=== PATIENT | male | born 1955 | race African-American/Black ===

== ENCOUNTER → 2016-06-29 | Outpatient (CLI) | payer MEDICAID, MEDICARE | LOC: RAD 06:40 | PROVIDERS: ATTEND Student in an Organized Health Care Education/Training Program | DX: K76.0 Fatty (change of) liver, not elsewhere classified (principal); R94.5 Abnormal results of liver function studies | CPT/HCPCS: 76705 ==

== ENCOUNTER → 2016-12-07 | Outpatient (CLI) | payer MEDICARE ==
--- NOTE | 2016-12-07 14:35 | RADIOLOGY REPORT (SQ) ---
EXAM DESCRIPTION: FOREARM RIGHT COMPLETED DATE/TIME: 12/07/2016 1:02 pm REASON FOR STUDY: RIGHT WRIST PAIN (M25.531) M25.531 PAIN IN RIGHT WRIST COMPARISON: None. NUMBER OF VIEWS: Two views. TECHNIQUE: Two radiographic images acquired of the right forearm, including elbow and wrist in at le ast one projection. LIMITATIONS: None. FINDINGS: MINERALIZATION: Normal. BONES: No acute fracture. No worrisome bone lesions. SOFT TISSUES: No obvious swelling or foreign body. OTHER: No other significant finding. IMPRESSION: NEGATIVE STUDY OF THE RIGHT FOREARM. NO RADIOGRAPHIC EVIDENCE OF ACUTE INJURY. TECHNICAL DOCUMENTATION: JOB ID: [id number] [email or web address]- All Rights Reserved
--- NOTE | 2016-12-07 14:36 | RADIOLOGY REPORT (SQ) ---
EXAM DESCRIPTION: HAND RIGHT 3 VIEWS COMPLETED DATE/TIME: 12/07/2016 1:02 pm REASON FOR STUDY: RIGHT WRIST PAIN (M25.531) M25.531 PAIN IN RIGHT WRIST COMPARISON: None. EXAM PARAMETERS: NUMBER OF VIEWS: Three views. TECHNIQUE: AP, lateral and oblique radiographic images acquired of the right hand. LIMITATIONS: None. FINDINGS: MINERALIZATION: Normal. BONES: No acute fracture or dislocation. No worrisome bone lesions. No significant osteophytes. JOINTS: No erosions. No rohit-articular osteopenia. No chondrocalcinosis. SOFT TISSUES: No swelling. No calcifications. OTHER: No other significant finding. IMPRESSION: NEGATIVE STUDY OF THE RIGHT HAND. NO EXPLANATION FOR PAIN. TECHNICAL DOCUMENTATION: JOB ID: [id number] [employer]- All Rights Reserved
== END ==
LOC: RAD 12:48
PROVIDERS: ATTEND Student in an Organized Health Care Education/Training Program
DX: M25.531 Pain in right wrist (principal)

== ENCOUNTER 2017-07-11 16:33 | Emergency (ER) | payer MEDICARE, MEDICAID ==
--- NOTE | 2017-07-11 17:24 | ER Document Report ---
HPI - HPI Pain Level: Denies Notes: Patient is a 61-year-old male with a history of type 2 diabetes, hypertension, COPD who presents to the ED complaining of right facial swelling that began today. Patient states that he has not had associated pain at rest, and it has improved since this morning, but does notice discomfort if he pushes on it. Patient states that he is still eating and drinking without any difficulties. He is urinating normally and having normal bowel movements. Patient states that he has not been sick recently and feels well overall aside from the swelling. Patient is still urinating normally and having normal bowel movements. His last glucose check was an hour prior to arrival which was 80. Patient has been taking his medicines normally without any side effects to note. He has not had any new medications, detergents, foods, drinks, or travel. Denies any headache, fever, head injury, neck pain, drooling, hoarseness, changes in vision/speech/mentation/hearing, URI, sore throat, chest pain, palpitations, syncope, cough, shortness of breath, wheeze, dyspnea, abdominal pain, nausea/vomiting/diarrhea, urinary retention, dysuria, hematuria , or rash. - ROS Systems Reviewed and Negative: Yes All other systems reviewed and negative - REPRODUCTIVE Reproductive: DENIES: : Past Medical History - Social History Smoking Status: Never Smoker Family History: CVA, Hypertension, Other - Past Medical History Cardiac Medical History: Reports: Hx Hypercholesterolemia, Hx Hypertension Pulmonary Medical History: Reports: Hx Asthma, Hx COPD, Hx Pneumonia, Hx Respiratory Failure, Hx Sleep Apnea, Hx Tuberculosis - 1982 Endocrine Medical History: Reports: Hx Diabetes Mellitus Type 2 - no meds. diet controlled Renal/ Medical History: Reports: Hx End Stage Renal Disease GI Medical History: Reports: Hx Hepatitis - HVC Musculoskeltal Medical History: Reports Hx Arthritis - RA Psychiatric Medical History: Reports: Hx Depression Infectious Medical History: Reports: Hx Hepatitis - HVC Past Surgical History: Reports: Hx Abdominal Surgery, Hx Orthopedic Surgery - Right ankle repair with metal plate and scews, Hx Tonsillectomy - Immunizations Hx Diphtheria, Pertussis, Tetanus Vaccination: Yes Hx Pneumococcal Vaccination: 02/24/13 Vertical Provider Document - CONSTITUTIONAL Agree With Documented VS: Yes Notes: PHYSICAL EXAMINATION: GENERAL: Well-appearing, well-nourished and in no acute distress. A&Ox4. Answers questions appropriately. Moves comfortably w/o notable distress HEAD: Atraumatic, normocephalic. EYES: Pupils equal round and reactive to light, extraocular movements intact, sclera anicteric, conjunctiva are normal. ENT: EAC clear b/l. TM's intact b/l without erythema, fluid, or perforation. Nares patent and without discharge. oropharynx no erythema without exudates. No tonsilar hypertrophy without erythema or exudate. No palatine shift. Uvula midline. No tongue protrusion. No drooling, hoarseness, or airway compromise. Moist mucous membranes. No sinus tenderness. Face: + mild swelling to the rt lateral face in the area of the parotid gland. + mild tenderness w/o obvious abscess or induration. No mouth/dental/gum tenderness. NECK: Normal range of motion, supple without lymphadenopathy. No rigidity/ meningismus. LUNGS: Breath sounds clear to auscultation bilaterally and equal. No wheezes rales or rhonchi. No retractions HEART: Regular rate and rhythm without murmurs, rubs, gallops. NEUROLOGICAL: Normal speech, normal gait. Normal sensory, motor exams PSYCH: Normal mood, normal affect. SKIN: Warm, Dry, normal turgor, no rashes or lesions noted. - INFECTION CONTROL TRAVEL OUTSIDE OF THE [place] IN LAST 30 DAYS: No - RESPIRATORY O2 Sat by Pulse Oximetry: 92 Course - Re-evaluation Re-evalutation: 07/11/17 17:22 Patient is an afebrile, well-hydrated, 61-year-old male who presents to the ED with parotiditis of the right side. Patient also has tachycardia not otherwise specified. Patient is nontoxic-appearing and does not appear to be any distress or show any signs of illness otherwise. Patient states that his health feels at baseline for him aside from the swelling to the right side of his face. Dr. Veliz was consulted due to the tachycardia and he also eval'd the patient. At this time, no labs or imaging warranted and we will discharge him home with antibiotics. Patient advised that he needs to eat sour candies as well as Motrin/ibuprofen and other conservative measures for symptoms. Patient is to monitor his heart rate closely. Patient is scheduled to see his primary care doctor in 2 days. Return to the ED with any worsening/concerning symptoms otherwise as reviewed discharge. Low suspicion for any meningitis, sepsis, peritonsillar/pharyngeal abscess, respiratory compromise, Mohsen's, or other emergent systemic condition at this time. Patient is aware this condition can change from initial presentation and he needs to monitor symptoms closely. Patient is in agreement. - Vital Signs Vital signs: Temp Pulse Resp BP Pulse Ox 97.7 F 127 H 28 H 139/68 H 92 07/11/17 16:39 07/11/17 16:39 07/11/17 16:39 07/11/17 16:39 07/11/17 16:39 Discharge - Discharge Clinical Impression: Parotiditis Condition: Stable Disposition: HOME, SELF-CARE Instructions: Acute Parotid Gland Swelling ([facility]) Additional Instructions: Take medications as directed Sour candies as directed Take Motrin/ibuprofen Continue to monitor glucose levels closely as well as your heart rate Monitor for any worsening symptoms Keep appointment with your primary care provider on Sunday Return to the ED with any worsening symptoms and/or development of fever, headache, neck pain/stiffness, hoarseness, drooling, troublw swallowing/ breathing, wheezing, chest pain, palpitations, syncope, shortness of breath, abdominal pain, n/v/d, blood in stool/urine, or other worsening symptoms that are concerning to you. Prescriptions: Clindamycin HCl [Cleocin 300 mg Capsule] 300 mg PO TID #30 capsule Forms: Elevated Blood Pressure Referrals: ALEN ESTRADA DO [Primary Care Provider] - 07/13/17 JUAN JOSE CARTY DO [ASSOCIATE] - Follow up as needed
[2017-07-11 17:34] VITALS: BP 131/78
== END 2017-07-11 17:35 | disposition home or self-care (01) ==
LOC: ER 16:33
DX: K11.20 Sialoadenitis, unspecified (principal); R22.0 Localized swelling, mass and lump, head; E11.9 Type 2 diabetes mellitus without complications; I10 Essential (primary) hypertension; J44.9 Chronic obstructive pulmonary disease, unspecified; E78.00 Pure hypercholesterolemia, unspecified
CPT/HCPCS: 99283

== ENCOUNTER → 2019-02-03 | Outpatient (CLI) | payer MEDICAID, MEDICARE ==
--- NOTE | 2019-02-03 15:51 | RADIOLOGY REPORT (SQ) ---
EXAM DESCRIPTION: CT CHEST WITHOUT COMPLETED DATE/TIME: 02/03/2019 2:09 pm REASON FOR STUDY: R06.00 DYSPNEA, UNSPECIFIED R06.00 DYSPNEA, UNSPECIFIED COMPARISON: 05/20/2015 and 02/17/2013. TECHNIQUE: CT scan performed of the chest without intravenous contrast. Images reviewed with lung, soft tissue and bone windows. Reconstructed coronal and sagittal MPR images reviewed. All images st ored on PACS. All CT scanners at this facility use dose modulation, iterative reconstruction, and/or weight based d osing when appropriate to reduce radiation dose to as low as reasonably achievable (ALARA). [facility]: Dose Right [facility]: CareDose [facility]: Dose Right [facility]: Teradose 4D [facility]: [employer] RADIATION DOSE: CT Rad equipment meets quality standard of care and radiation dose reduction techniq ues were employed. CTDIvol: 19.6 mGy. DLP: 862 mGy-cm. mGy. LIMITATIONS: No technical limitations. FINDINGS: LUNGS AND PLEURA: Previously documented subcentimeter nodules in the right upper lobe (axi al series 4 image 57) and in the left upper lobe (axial series 4 images 65 and 68) are stable and unc hanged. No new nodules or masses. Emphysematous changes with scattered bullae particularly in the r ight lung apex. Chronic interstitial scarring in the lung bases with mild bronchiectasis in the lung bases. No focal infiltrates. No ground-glass opacities. No pleural effusion, pleural thickening, or pleural calcifications. HILAR AND MEDIASTINAL STRUCTURES: No identified masses or abnormal nodes. No obvious aneurysm. HEART AND VASCULAR STRUCTURES: No aneurysm. No pericardial effusion. UPPER ABDOMEN: No significant findings. Limited exam. THYROID AND OTHER SOFT TISSUES: No masses. No adenopathy. BONES: No significant finding. HARDWARE: None in the chest. OTHER: No other significant findings. IMPRESSION: EMPHYSEMATOUS CHANGES WITH SMALL BULLAE. CHRONIC PARENCHYMAL SCARRING AND BRONCHIECTASI S IN THE LUNG BASES. SMALL SUBCENTIMETER NODULES REMAIN STABLE AND UNCHANGED SINCE 2012. NO ACUTE F INDINGS. TECHNICAL DOCUMENTATION: JOB ID: [id number] Quality ID # [id number]: Final reports with documentation of one or more dose reduction techniques (e.g., Au tomated exposure control, adjustment of the mA and/or kV according to patient size, use of iterative reconstruction technique) 2010 [employer]- All Rights Reserved Reading location - IP/workstation name: [email or web address]
== END ==
LOC: RAD 13:59
PROVIDERS: ATTEND Internal Medicine Pulmonary Disease
DX: R06.00 Dyspnea, unspecified (principal)
CPT/HCPCS: 71250

== ENCOUNTER → 2020-03-08 | Outpatient (CLI) | payer MEDICAID, MEDICARE ==
--- NOTE | 2020-03-08 10:58 | RADIOLOGY REPORT (SQ) ---
EXAM DESCRIPTION: CT CHEST WITHOUT IMAGES COMPLETED DATE/TIME: 03/08/2020 10:11 am REASON FOR STUDY: BRONCHIECTASIS J47.9 BRONCHIECTASIS, UNCOMPLICATED COMPARISON: 02/03/2019, 05/20/2015 TECHNIQUE: CT scan performed of the chest without intravenous contrast. Images reviewed with lung, soft tissue and bone windows. Reconstructed coronal and sagittal MPR images reviewed. All images st ored on PACS. All CT scanners at this facility use dose modulation, iterative reconstruction, and/or weight based d osing when appropriate to reduce radiation dose to as low as reasonably achievable (ALARA). [facility]: Dose Right [facility]: CareDose [facility]: Dose Right [facility]: Teradose 4D [facility]: [employer] RADIATION DOSE: CT Rad equipment meets quality standard of care and radiation dose reduction techniq ues were employed. CTDIvol: 19.6 mGy. DLP: 852 mGy-cm. mGy. LIMITATIONS: No technical limitations. FINDINGS: LUNGS AND PLEURA: Bilateral emphysematous changes are again noted. Stable bronchiectasis. Stable areas of scarring in the right upper lobe and left base. Subpleural nodules are unchanged a nd measure 5 to 6 mm in size in the right and left upper lobes. There is an additional stable 5.5 mm nodule in the left upper lobe best demonstrated on series 4, image 67. HILAR AND MEDIASTINAL STRUCTURES: No identified masses or abnormal nodes. No obvious aneurysm. HEART AND VASCULAR STRUCTURES: No aneurysm. No pericardial effusion. UPPER ABDOMEN: No significant findings. Limited exam. THYROID AND OTHER SOFT TISSUES: No masses. No adenopathy. BONES: No significant finding. HARDWARE: None in the chest. OTHER: No other significant findings. IMPRESSION: Chronic emphysematous changes with bronchiectasis. No change from prior exam. Small pa renchymal and subpleural nodules are stable dating back to 2016. TECHNICAL DOCUMENTATION: JOB ID: [id number] Quality ID # [id number]: Final reports with documentation of one or more dose reduction techniques (e.g., Au tomated exposure control, adjustment of the mA and/or kV according to patient size, use of iterative reconstruction technique) 2010 [employer]- All Rights Reserved Reading location - IP/workstation name: [email or web address]
== END ==
LOC: RAD 09:53
PROVIDERS: ATTEND Registered Nurse
DX: J47.9 Bronchiectasis, uncomplicated (principal); J43.9 Emphysema, unspecified
CPT/HCPCS: 71250